=== PATIENT | female | born 2000 | race African-American/Black ===

== ENCOUNTER 2020-03-16 22:58 | Inpatient (IN) ==
[2020-03-16] MEDS ORDERED: LACTATED RINGERS 1,000 ML IV ONE (23:20)
[2020-03-16] MEDS ORDERED: ONDANSETRON 4 MG/2 ML VIAL IV PRN (23:20)
[2020-03-16] MEDS ORDERED: MEPERIDINE 50 MG/1 ML VIAL IV PRN (23:20)
[2020-03-16] MEDS ORDERED: LACTATED RINGERS 1,000 ML IV SCH (23:30)
[2020-03-17 00:07] LABS: Basophils # 0.1 10*3/uL (0.0-0.2); Basophils % 0.7 % (0.0-0.8); Eosinophils # 0.1 10*3/uL (0.0-0.87); Eosinophils % 1.3 % (0.00-10.9); Hematocrit 32.6 VOL% (35.7-47.0); Immature Granulocytes % 0.7 %; Immature Granulocytes Absolute 0.05 #; Lymphocytes # 1.9 10*3/uL (1.4-4.0); Lymphocytes % 26.5 % (21.3-54.2); Mean Corpuscular HGB Conc 33.7 GM/DL (32-36); Mean Corpuscular Volume 91.6 FL (87-102); Mean Platelet Volume 10.6 FL (9.6-12.0); Monocytes % 9.7 % (1.7-12.7); Neutrophils % 61.1 % (38.7-73.9); Platelet Count 152 T/CUMM (130-400); Red Blood Count 3.56 MC/CUMM (3.8-5.5); Red Cell Distribution Width 12.7 % (9.3-17.3)
[2020-03-17 00:25] LABS: Albumin 2.7 G/DL (3.4-5.0); Bilirubin,Total 0.4 MG/DL (0.2-1.0); Calcium 9.1 MG/DL (8.5-10.1); Osmolality,Calculated 269.8 MOS/KG (273-304); Total Protein 7.1 G/DL (6.4-8.3)
[2020-03-17] MEDS: BUTORPHANOL 2 MG/ML VIAL IV PRN ×2 (01:01→04:04)
[2020-03-17 02:15] LABS: Hypochromasia 1+; Microcytosis 1+; Platelet Estimate Normal
[2020-03-17] MEDS ORDERED: TRANEXAMIC ACID 1,000 MG/10 ML VIAL ONE (04:14)
[2020-03-17] MEDS ORDERED: miSOPROStoL 200 MCG TABLET ONE (04:14)
[2020-03-17] MEDS ORDERED: OXYTOCIN/LR 20 UNIT/1,000 ML BAG IV ONE ×3 (04:14→04:56)
[2020-03-17] MEDS ORDERED: LIDOCAINE 1% 50 ML VIAL ONE (04:14)
[2020-03-17] MEDS ORDERED: METHYLERGONOVINE 0.2 MG/1 ML AMP ONE (04:15)
[2020-03-17] MEDS ORDERED: CARBOPROST TROMETHAMINE 250 MCG/ML AMP IM ONE (04:15)
[2020-03-17 04:54] LABS: Cord Venous Blood HCO3 23.1 MMOL/L; Cord Venous Blood PCO2 43.7 MMHG; Cord Venous Blood PO2 33.7
[2020-03-17] MEDS ORDERED: LANOLIN 50% CREAM 0.3 OZ TUBE TOP PRN (04:56)
[2020-03-17] MEDS ORDERED: oxyCODONE/ACETAMINOPHEN 5-325 MG TABLET PO PRN ×2 (04:56)
[2020-03-17] MEDS ORDERED: HYDROCORTISONE 2.5% RECTAL CREAM 30 GM TUBE TOP PRN (04:56)
[2020-03-17] MEDS ORDERED: BISACODYL 10 MG SUPP RECTAL PRN (04:56)
[2020-03-17] MEDS ORDERED: BENZOCAINE 20%/MENTHOL 0.5% SPRAY 56 GM CAN TOP PRN (04:56)
[2020-03-17] MEDS ORDERED: MEASLES/MUMPS/RUBELLA VACCINE 0.5 ML VIAL SUBCUT ONE (04:56)
[2020-03-17] MEDS ORDERED: RHO(D) IMMUNE GLOBULIN 300 MCG SYRINGE IM ONE (04:56)
[2020-03-17] MEDS ORDERED: DIPH/TET/ACEL PERT BOOSTER VACCINE 0.5 ML VIAL IM ONE (04:56)
[2020-03-17] MEDS ORDERED: WITCH HAZEL PADS 100/JAR TOP PRN (04:56)
[2020-03-17] MEDS ORDERED: ONDANSETRON 4 MG/2 ML VIAL IV PRN (04:56)
[2020-03-17] MEDS ORDERED: ACETAMINOPHEN 325 MG TABLET PO PRN (04:56)
[2020-03-17] MEDS: DOCUSATE SODIUM 100 MG CAPSULE PO SCH ×2 (09:37→21:46)
[2020-03-18] MEDS: IBUPROFEN 800 MG TABLET PO PRN ×2 (01:51→19:41)
[2020-03-18 05:27] LABS: Basophils # 0.1 10*3/uL (0.0-0.2); Basophils % 0.6 % (0.0-0.8); Eosinophils # 0.1 10*3/uL (0.0-0.87); Eosinophils % 0.5 % (0.00-10.9); Hematocrit 28.2 VOL% (35.7-47.0); Hemoglobin 9.5 GM/DL (12.0-16.0); Immature Granulocytes % 0.8 %; Immature Granulocytes Absolute 0.08 #; Lymphocytes # 2.3 10*3/uL (1.4-4.0); Lymphocytes % 22.4 % (21.3-54.2); Mean Corpuscular HGB Conc 33.7 GM/DL (32-36); Mean Corpuscular Volume 91.9 FL (87-102); Mean Platelet Volume 10.4 FL (9.6-12.0); Neutrophils % 67.7 % (38.7-73.9); Platelet Count 143 T/CUMM (130-400); Red Blood Count 3.07 MC/CUMM (3.8-5.5); Red Cell Distribution Width 12.8 % (9.3-17.3); White Blood Count 10.3 T/CUMM (4-12)
[2020-03-18 06:02] LABS: Anisocytosis 1+; Band Neutrophils 10 % (0-10); Eosinophils 1 % (0-10); Lymphocytes 20 % (20-55); Metamyelocytes 1 %; Platelet Estimate Adequate; Segmented Neutrophils 61 % (50-85); Total Cells Counted 100
[2020-03-18 06:03] LABS: Macrocytosis Slight
[2020-03-18] MEDS: DOCUSATE SODIUM 100 MG CAPSULE PO SCH ×3 (09:03→21:01)
[2020-03-19 08:36] VITALS: BP 105/68
[2020-03-19] MEDS: DOCUSATE SODIUM 100 MG CAPSULE PO SCH (09:06)
== END 2020-03-19 13:00 | disposition home or self-care (01) | DRG 560 ==
LOC: N.LD 22:58 → N.LDOUT 22:58 → N.LD 23:20 → N.OB 03-17 09:49
PROVIDERS: ADMIT Specialist; ATTEND Specialist